=== PATIENT | female | born 1995 | race Caucasian/White ===

== ENCOUNTER 2018-03-29 12:51 | Inpatient (IN) | payer OTHER ==
[~2018-03-29] VITALS: Ht 167.6 cm; Wt 78.0 kg
[2018-03-29 13:06] VITALS: BP 116/68; PULSE 68; TEMP 97.9
--- NOTE | 2018-03-29 13:45 | NUR ---
TAKING OVER PATIENT'S CARE. RECEIVED REPORT FROM OLAMIDE HOWELL. PATIENT IS A&O. VSS. PATIENT HAS BEEN TREATED OUTPATIENT THE LAST 10 DAYS WITH ORAL ANTIBIOTICS AND STEROIDS AND HAS NOT IMPROVED. PATIENT C/O RIB PAIN, N/V, WEAKNESS AND UNABLE TO EAT/DRINK MUCH. STARTED 20 GAUZE IV INTO RIGHT HAND ON FIRST ATTEMPT. HEAD TO TOE ASSESSMENT COMPLETE. NOTED SLIGHTLY DEMINISHED LEFT LOWER LOBE BASE. ORIENTED TO ROOM. CALL LIGHT IN REACH. HOSPITALIST NOTIFIED OF PATIENT ARRIVAL. AWAITING ORDERS. PATIENT'S FRIEND AT BEDSIDE.
[2018-03-29] MEDS ORDERED: ZOFRAN ODT8 MG PO (14:44)
[2018-03-29] MEDS ORDERED: PREDNISONE20 MG PO (14:45)
[2018-03-29] MEDS ORDERED: NORCO 325 MG-51 TAB PO (14:45)
[2018-03-29] MEDS ORDERED: MICROGESTIN 1.51 TAB PO (14:45)
[2018-03-29] MEDS ORDERED: CARAFATE S1 GM/10 ML PO (14:45)
[2018-03-29] MEDS ORDERED: LEVAQUIN 750MG750 M1 PO (14:45)
--- NOTE | 2018-03-29 15:35 | NUR ---
PATIENT GOING DOWN TO CT VIA WHEELCHAIR
[2018-03-29 16:14] LABS: BASO % 0.1 % (0.0-2.0); EOS % 0.1 % (0-4.0); GRAN % 82.5 % (42.2-75.2); HEMATOCRIT 40.1 % (37.0-47.0); HEMOGLOBIN 13.3 g/dl (12.5-16.0); LYMPH # 1.2 (1.2-3.4); LYMPH % 16.3 % (20.0-51.0); MEAN CELL VOLUME 89 fl (80.0-100.0); MEAN CORPUSCULAR HEMOGLOBIN 30 pg (27.0-31.0); MEAN CORPUSCULAR HGB CONC 33 g/dl (33.0-37.0); MEAN PLATELET VOLUME 10.2 fl (7.4-10.4); MONO # 0.1 (0.1-0.6); MONO % 0.7 % (1.7-9.3); PLATELET COUNT 305 K/mm3 (130-400); RED BLOOD COUNT 4.51 M/mm3 (4.10-5.30); REDCELL DISTRIBUTION WIDTH-CV 13.1 % (11.5-14.5)
[2018-03-29 16:30] LABS: ALBUMIN 3.9 gm/dL (3.5-5.0); BILIRUBIN,TOTAL 0.2 mg/dL (0.0-1.0); CREATININE, serum 0.83 mg/dL (0.52-1.25); POTASSIUM 4.3 mmol/L (3.4-5.0); TOTAL PROTEIN 7.4 gm/dL (6.4-8.2)
--- NOTE | 2018-03-29 18:24 | NUR ---
PATIENT DISCHARGING HOME VIA AMBULATORY TO PERSONAL VEHICLE WITH MOTHER. GAVE DISCHARGE INSTRUCTIONS, SCRIPT FOR SCHOOL & FOLLOW UP APT. ANSWERED ALL QUESTIONS/CONCERNS. DC'D RIGHT HAND IV, COVERED SITE WITH GAUZE & COBAN. PATIENT DRESSED AND DISCHARGED.
== END 2018-03-29 18:27 | disposition home or self-care (01) | DRG 392 ==
LOC: MEDICAL 12:51
PROVIDERS: Physician Assistant; ADMIT Student in an Organized Health Care Education/Training Program
DX: R11.2 Nausea with vomiting, unspecified (principal); R53.83 Other fatigue; K90.0 Celiac disease
CPT/HCPCS: J2405; J7030

== ENCOUNTER → 2018-10-08 | Outpatient (CLI) | payer OTHER ==
[~2018-10-08] MED LIST: CARAFATE S1 GM/10 ML PO; LEVAQUIN 750MG750 M1 PO; MICROGESTIN 1.51 TAB PO; NORCO 325 MG-51 TAB PO; PREDNISONE20 MG PO; ZOFRAN ODT8 MG PO
== END ==
LOC: COL.RAD 07:41
DX: K90.0 Celiac disease (principal); K20.0 Eosinophilic esophagitis
CPT/HCPCS: A9541